=== PATIENT | female | born 1950 | race Caucasian/White ===

== ENCOUNTER 2018-08-17 15:30 | Emergency (ER) | payer MEDICARE, OTHER ==
[~2018-08-17] VITALS: Wt 81.0 kg
[~2018-08-17 15:30] MED LIST: ALBU8.5H8 INH; LEVO500T10 PO; PRED50TA PO
[2018-08-17 15:32] VITALS: Wt 81.0 kg
[2018-08-17] MEDS ORDERED: HYDROCODONE/APAP (10/325) TAB PO ONE (17:30)
[2018-08-17] MEDS ORDERED: IBUP800T48 PO (17:34)
--- NOTE | 2018-08-17 17:40 | ERD ---
ER Documentation Chief Complaint Chief Complaint R KNEE PAIN X 1 MONTH; ETOH N/V HPI 67-year-old female, smoking history who presents to the emergency room with chronic left knee pain. She states that the left knee has been hurting her for at least 4 months. She feels a clicking sensation in the knee. She states that she has been to [facility] many times for this issue. She is asking for pain medication. She denies any new falls or trauma or injury. No warmth or tenderness or limited range of motion. Patient also describes a burning sensation in her throat when she smokes cigarettes. Patient otherwise has no complaints. Her pain in her left knee today is approximately 6 out of 10. ROS All systems reviewed and are negative except as per history of present illness. Medications Home Meds Active Scripts Ibuprofen* (Motrin*) 800 Mg Tab, 800 MG PO Q6H PRN for PAIN AND OR ELEVATED TEMP , #30 TAB Prov:SMITHA FRIEND MD 08/17/18 Prednisone* (Prednisone*) 50 Mg Tablet, 50 MG PO purnima for 5 Days, TAB Prov:GENIE LUNDY MD 05/23/16 Levofloxacin* (Levofloxacin*) 500 Mg Tablet, 500 MG PO Q48H for 10 Days, TAB Prov:GENIE LUNDY MD 05/23/16 Albuterol Sulfate* (Proair HFA*) 8.5 Gm Hfa.aer.ad, 2 PUFF INH Q6H PRN for WHEEZING AND SOB, #1 INHALER Prov:GENIE LUNDY MD 05/23/16 Allergies Allergies: Coded Allergies: No Known Allergy (Unverified , 05/23/16) PMhx/Soc Medical and Surgical Hx: pt denies Medical Hx, pt denies Surgical Hx Hx Alcohol Use: Yes Hx Substance Use: No Hx Tobacco Use: Yes Smoking Status: Never smoker FmHx Family History: No diabetes Physical Exam Vitals Vital Signs Date Temp Pulse Resp B/P (MAP) Pulse Ox O2 O2 Flow FiO2 Time Delivery Rate 08/17/18 98.9 92 18 144/70 99 15:32 (94) Physical Exam General: Disheveled, smells strongly of tobacco Head: Normocephalic, atraumatic. Eyes: Pupils equally reactive, EOM intact ENT: Moist mucous membranes Neck: Supple, no lymphadenopathy Respiratory: Lungs clear bilaterally, no distress Cardiovascular: RRR, no murmurs, rubs, or gallops Abdominal: Soft, non-tender, non-distended, no peritoneal signs : Deferred MSK: Left knee with full active and passive range of motion, no ligamentous or tendinous instability. No erythema warmth or tenderness. No effusion. Neurovascular intact distally. Neurologic: Alert and oriented, moving all extremities, normal speech, no focal weakness, no cerebellar signs Skin: No rash Psych: Normal mood Results 24 hrs Current Medications Medications Dose Sig/Simona Start Time Status Last (Trade) Ordered Route PRN Stop Time Admin Dose Reason Admin 1 tab ONCE ONCE 08/17/18 DC 08/17/18 Acetaminophen PO 17:30 17:31 / 08/17/18 17:31 Hydrocodone Bitart ([place] ()) Procedures/MDM The patient presents with chronic left knee pain. Her knee exam is un remarkable. She does describe a clicking sensation, consider possible meniscus injury but this is a subacute process. She exhibits no signs or symptoms concerning for DVT, septic arthritis or acute process at this time. I do not believe x-ray imaging is necessary. The patient is asking for pain medication. At this point the patient does not exhibit any signs or symptoms concerning for emergent medical condition. X-ray imaging will not be helpful given the chronicity of the symptoms. The patient was advised that she needs to follow-up with a primary care physician, PT OT and outpatient biology specialist. The patient was given a single [place] here in the emergency room. She asked for a knee brace and Dg wrap was provided to the patient. She is ambulatory without difficulty and can be safely discharged. The patient does not have an identifiable emergent medical condition that warrants inpatient hospitalization at this time. The patient is deemed safe for discharge with outpatient follow-up. We discussed follow up with the patient's primary care doctor within 24 to 48 hours as needed. We also discussed return to the emergency room for worsening symptoms or worsening condition. Outpatient referral: nursing education specialist Discharge Medications: Motrin Departure Diagnosis: Primary Impression: Chronic pain of left knee Condition: Good Patient Instructions: Knee Pain, Meniscus Injury (Possible), Knee Pain, Uncertain Cause Referrals: [facility] YOU HAVE RECEIVED A MEDICAL SCREENING EXAM AND THE RESULTS INDICATE THAT YOU DO NOT HAVE A CONDITION THAT REQUIRES URGENT TREATMENT IN THE EMERGENCY DEPARTMENT. FURTHER EVALUATION AND TREATMENT OF YOUR CONDITION CAN WAIT UNTIL YOU ARE SEEN IN YOUR DOCTORS OFFICE WITHIN THE NEXT 1-2 DAYS. IT IS YOUR RESPONSIBILITY TO MAKE AN APPOINTMENT FOR FOLOW-UP CARE. IF YOU HAVE A PRIMARY DOCTOR --you should call your primary doctor and schedule an appointment IF YOU DO NOT HAVE A PRIMARY DOCTOR YOU CAN CALL OUR PHYSICIAN REFERRAL HOTLINE AT IF YOU CAN NOT AFFORD TO SEE A PHYSICIAN YOU CAN CHOSE FROM THE FOLLOWING [facility] [address] [facility] [address] [facility] [address] [facility] [address] [facility] [address] [facility]. [facility] [address] [facility]. [facility] YOU HAVE RECEIVED A MEDICAL SCREENING EXAM AND THE RESULTS INDICATE THAT YOU DO NOT HAVE A CONDITION THAT REQUIRES URGENT TREATMENT IN THE EMERGENCY DEPARTMENT. FURTHER EVALUATION AND TREATMENT OF YOUR CONDITION CAN WAIT UNTIL YOU ARE SEEN IN YOUR DOCTORS OFFICE WITHIN THE NEXT 1-2 DAYS. IT IS YOUR RESPONSIBILITY TO M ALPESH AN APPOINTMENT FOR FOLOW-UP CARE. IF YOU HAVE A PRIMARY DOCTOR --you should call your primary doctor and schedule and appointment IF YOU DO NOT HAVE A PRIMARY DOCTOR YOU CAN CALL OUR PHYSICIAN REFERRAL HOTLINE AT . IF YOU CAN NOT AFFORD TO SEE A PHYSICIAN YOU CAN CHOSE FROM THE FOLLOWING [facility] INSTITUTIONS: [facility] [address] [place] [address] [facility] [address] [place] [address] [facility] [address] [place] [address] [facility] 7 a.m.- 11 p.m. Every Day of the Week NO APPOINTMENT OR AUTHORIZATION NEEDED [facility] Hours: Mon-Fri 9:00 AM - 5:00 PM Additional Instructions: Call your primary care doctor TOMORROW for an appointment during the next 1 WEEK.Tell the remediation consultant that you were referred from this facility.See the doctor sooner or return here if your condition worsens before your appointment time. SMITHA FRIEND MD Aug 17, 2018 17:40
== END 2018-08-17 18:02 | disposition home or self-care (01) ==
LOC: E/R 15:30
DX: M25.562 Pain in left knee (principal); Z87.891 Personal history of nicotine dependence
CPT/HCPCS: 99283